=== PATIENT | female | born 1950 | race Asian ===

== ENCOUNTER 2019-06-05 19:07 | Inpatient (IN) | payer MEDICARE, OTHER ==
[~2019-06-05] VITALS: Ht 157.5 cm; Wt 71.8 kg
[2019-06-05] MEDS ORDERED: fentaNYL PF VIAL 100 MCG/2 ML VIAL IV ONE ×2 (20:15→22:15)
[2019-06-05 20:19] LABS: BASO # 0.1 x10^3/uL (0.0-0.2); BASO % 1 % (0-3); EOS # 0.2 x10^3/uL (0.0-0.7); EOS % 2 % (0-3); HEMATOCRIT 43.5 % (36.0-47.0); HEMOGLOBIN 14.5 g/dL (12.0-15.5); LYMPH # 1.7 x10^3/uL (1.0-4.8); LYMPH % 26 % (24-48); MEAN CORPUSCULAR HEMOGLOBIN 29 pg (25-35); MEAN CORPUSCULAR HGB CONC 33 g/dL (31-37); MEAN CORPUSCULAR VOLUME 88 fL (79-100); MONO # 0.5 x10^3/uL (0.0-1.1); MONO % 8 % (0-9); NEUT # 4.1 x10^3/uL (1.8-7.7); NEUT % 62 % (31-73); PLATELET COUNT 276 x10^3/uL (140-400); RED BLOOD COUNT 4.93 x10^6/uL (3.50-5.40); RED CELL DISTRIBUTION WIDTH 13.4 % (11.5-14.5); WHITE BLOOD COUNT 6.6 x10^3/uL (4.0-11.0)
[2019-06-05 20:20] LABS: BILIRUBIN,URINE NEGATIVE (NEG); CLARITY,URINE CLEAR; COLOR,URINE YELLOW; NITRITE,URINE NEGATIVE (NEG); PROTEIN,URINE NEGATIVE (NEG-TRACE); UROBILINOGEN,URINE 0.2 mg/dL (0.2 mg/dL)
[2019-06-05 20:26] LABS: BACTERIA,URINE FEW /HPF (0-FEW); RBC,URINE 0 /HPF (0-2); SQUAMOUS EPITHELIAL CELL,UR OCC /LPF
[2019-06-05 20:29] LABS: CREATININE 1.1 mg/dL (0.6-1.0); GFR 49.4; POTASSIUM 3.2 mmol/L (3.5-5.1)
[2019-06-05 20:35] LABS: ALBUMIN 4.2 g/dL (3.4-5.0); TOTAL BILIRUBIN 0.4 mg/dL (0.2-1.0); TOTAL PROTEIN 8.3 g/dL (6.4-8.2)
--- NOTE | 2019-06-05 20:46 | PHYS DOC ---
Past Medical History Past Medical History: Hypertension (GABI POST APRN) Alcohol Use: None Drug Use: None (GABI POST APRN) Adult General Chief Complaint Chief Complaint: MECHANICAL FALL HPI HPI Patient is a 69 year old female who presents with dizziness 6:30 PM tonight she was in the kitchen and didn't realize a dental assisting instructor was open and she tripped over it and fell landing on her right arm. Patient also has a 1 cm laceration to her right forehead of which she states that her eyeglasses when to her face. Patient denies hitting her head, LOC, blood thinners, nausea, vomiting, visual changes, dizziness. Patient states after she fell she also started having palpitations. Patient states she no longer has palpitations. Patient also denies chest pain, shortness of air. Patient rates her arm pain is 10 out of 10. (GABI POST APRN) Review of Systems Review of Systems Constitutional: Denies fever or chills [] Eyes: Denies change in visual acuity, redness, or eye pain [] HENT: Denies nasal congestion or sore throat [] Respiratory: Denies cough or shortness of breath [] Cardiovascular: No additional information not addressed in HPI [] GI: Denies abdominal pain, nausea, vomiting, bloody stools or diarrhea [] : Denies dysuria or hematuria [] Musculoskeletal: Denies back pain. Right shoulder, humerus, elbow, forearm joint pain [] Integument: laceration to right forehead. Denies rash or skin lesions [] Neurologic: Denies headache, focal weakness or sensory changes [] Endocrine: Denies polyuria or polydipsia [] All other systems were reviewed and found to be within normal limits, except as documented in this note. (GABI POST APRN) Current Medications Current Medications Current Medications Medications (Trade) Dose Ordered Sig/Amando Start Time Stop Time Status Last Admin Dose Admin Fentanyl Citrate (Fentanyl 2ml Vial) 50 mcg 1X ONCE 06/05/19 20:15 06/05/19 20:45 DC 06/05/19 21:00 50 MCG (HARSH BARRERA MD) Allergies Allergies Allergies Coded Allergies Type Severity Reaction Last Updated Verified No Known Drug Allergies 06/05/19 No (HARSH BARRERA MD) Physical Exam Physical Exam Constitutional: Well developed, well nourished, no acute distress, non-toxic appearance. [] HENT: Normocephalic, atraumatic, bilateral external ears normal, oropharynx moist, no oral exudates, nose normal. [] Eyes: PERRLA, EOMI, conjunctiva normal, no discharge. [] Neck: Normal range of motion, no tenderness, supple, no stridor. [] Cardiovascular:Heart rate regular rhythm, no murmur [] Lungs & Thorax: Bilateral breath sounds clear to auscultation [] Abdomen: Bowel sounds normal, soft, no tenderness, no masses, no pulsatile masses. [] Skin: 1 cm laceration to right forehead. Warm, dry, no erythema, no rash. [] Back: No tenderness, no CVA tenderness. [] Extremities: Right shoulder, humerus, elbow and forearm tenderness, no cyanosis, no clubbing, Right shoulder ROM no intact, no edema. [] Neurologic: Alert and oriented X 3, normal motor function, normal sensory function, no focal deficits noted. [] Psychologic: Affect normal, judgement normal, mood normal. [] (GABI POST APRN) Current Patient Data Vital Signs Vital Signs Date Time Temp Pulse Resp B/P (MAP) Pulse Ox O2 Delivery O2 Flow Rate FiO2 06/05/19 21:30 64 96 06/05/19 21:00 20 Room Air 06/05/19 19:27 99.7 226/103 (144) 99.7 (HARSH BARRERA MD) Lab Values Laboratory Tests Test 06/05/19 17:30 06/05/19 19:50 Urine Collection Type Void Urine Color Yellow Urine Clarity Clear Urine pH 7.0 Urine Specific [place] 1.010 Urine Protein Negative mg/dL (NEG-TRACE) Urine Glucose (UA) 500 mg/dL (NEG) Urine Ketones (Stick) Negative mg/dL (NEG) Urine Blood Negative (NEG) Urine Nitrite Negative (NEG) Urine Bilirubin Negative (NEG) Urine Urobilinogen Dipstick 0.2 mg/dL (0.2 mg/dL) Urine Leukocyte Esterase Trace (NEG) Urine RBC 0 /HPF (0-2) Urine WBC 1-4 /HPF (0-4) Urine Squamous Epithelial Cells Occ /LPF Urine Bacteria Few /HPF (0-FEW) Urine Mucus Mod /LPF White Blood Count 6.6 x10^3/uL (4.0-11.0) Red Blood Count 4.93 x10^6/uL (3.50-5.40) Hemoglobin 14.5 g/dL (12.0-15.5) Hematocrit 43.5 % (36.0-47.0) Mean Corpuscular Volume 88 fL (79-100) Mean Corpuscular Hemoglobin 29 pg (25-35) Mean Corpuscular Hemoglobin Concent 33 g/dL (31-37) Red Cell Distribution Width 13.4 % (11.5-14.5) Platelet Count 276 x10^3/uL (140-400) Neutrophils (%) (Auto) 62 % (31-73) Lymphocytes (%) (Auto) 26 % (24-48) Monocytes (%) (Auto) 8 % (0-9) Eosinophils (%) (Auto) 2 % (0-3) Basophils (%) (Auto) 1 % (0-3) Neutrophils # (Auto) 4.1 x10^3/uL (1.8-7.7) Lymphocytes # (Auto) 1.7 x10^3/uL (1.0-4.8) Monocytes # (Auto) 0.5 x10^3/uL (0.0-1.1) Eosinophils # (Auto) 0.2 x10^3/uL (0.0-0.7) Basophils # (Auto) 0.1 x10^3/uL (0.0-0.2) Sodium Level 139 mmol/L (136-145) Potassium Level 3.2 mmol/L (3.5-5.1) L Chloride Level 100 mmol/L (98-107) Carbon Dioxide Level 30 mmol/L (21-32) Anion Gap 9 (6-14) Blood Urea Nitrogen 6 mg/dL (7-20) L Creatinine 1.1 mg/dL (0.6-1.0) H Estimated GFR (Cockcroft-Gault) 49.4 BUN/Creatinine Ratio 5 (6-20) L Glucose Level 273 mg/dL (70-99) H Calcium Level 9.0 mg/dL (8.5-10.1) Total Bilirubin 0.4 mg/dL (0.2-1.0) Aspartate Amino Transferase (AST) 25 U/L (15-37) Alanine Aminotransferase (ALT) 55 U/L (14-59) Alkaline Phosphatase 96 U/L (46-116) Troponin I Quantitative < 0.017 ng/mL (0.000-0.055) Total Protein 8.3 g/dL (6.4-8.2) H Albumin 4.2 g/dL (3.4-5.0) Albumin/Globulin Ratio 1.0 (1.0-1.7) Laboratory Tests 06/05/19 19:50 Laboratory Tests 06/05/19 19:50 (HARSH BARRERA MD) EKG EKG Sinus Rhythm and no STEMI[] Interpretation Time: [address] Barrera (GABI POST APRN) Radiology/Procedures Radiology/Procedures [] (GABI POST APRN) Impressions: [facility] [address] [place], [place] [id number] IMAGING REPORT Signed PATIENT: NEREIDA BOLAÑOS DACCOUNT: [id number] : 1950 LOCATION: ER AGE: 69 SEX: F EXAM STATUS: PRE ER ORD. PHYSICIAN: GABI POST APRN REASON: FALL PROCEDURE: CT HEAD WO CONTRAST Exam: CT head INDICATION: Fall TECHNIQUE: Sequential axial images through the head were obtained without the administration of IV contrast. Comparisons: None FINDINGS: Embolization coils at the left middle cranial fossa limiting evaluation with extensive streak artifact. No focal parenchymal lesion or hemorrhage is identified. There is no midline shift or sulcal effacement. Patchy hypodensity within the periventricular white matter and basal ganglia which are age indeterminate. The ventricular system is within normal limits without compression hydrocephalus. The basal cisterns are well maintained. Mild soft tissue contusion overlying the right supraorbital ridge. The visualized portions of the paranasal sinuses and mastoid air cells are well-pneumatized. No acute fractures. IMPRESSION: 1. Embolization coils at the left intracranial internal carotid artery limit evaluation. 2. Mild soft tissue contusion overlying the right supraorbital ridge. No acute abnormality is identified. Exposure: One or more of the following in the visualized dose reduction techniques were utilized for this examination: 1. Automated exposure control 2. Adjustment of the MA and/or KV according to patient size Use of iterative of reconstructive technique Electronically signed by: Rick Trammell MD (06/05/2019 8:53 PM) [facility] DICTATED and SIGNED BY: RICK TRAMMELL MD DATE: 06/05/192052 (GABI POST APRN) Course & Med Decision Making Course & Med Decision Making Patient is a 69 year old female who presents with dizziness 6:30 PM tonight she was in the kitchen and didn't realize a dental assisting instructor was open and she tripped over it and fell landing on her right arm. Patient also has a 1 cm laceration to her right forehead of which she states that her eyeglasses when to her face. Patient denies hitting her head, LOC, blood thinners, nausea, vomiting, visual changes, dizziness. Patient states after she fell she also started having palpitations. Patient states she no longer has palpitations. Patient also denies chest pain, shortness of air. Patient rates her arm pain is 10 out of 10. EKG shows sinus rhythm and no STEMI. Patient denies any abdominal pain or dysuria or pain anywhere else on her body. Patient has no deformity to her right upper extremity but has tenderness to palpation of shoulder, humerus, elbow and upper or arm. There is no bruising or swelling. Cap refill is less than 3 seconds and radial pulses strong and present. Alert and oriented. Skin is pink warm and dry. Patient does not have intact range of motion to the right shoulder due to pain. She has full range of motion of her elbow, wrist and fingers. Patient has no tenderness to her head, focal tenderness to her cervical, thoracic, lumbar spine and has full range of motion of her back and neck. Speaks in full clear sentences. Ambulatory with steady gait. Denies any hip pain and has no hip pain or pelvis pain with palpation or pelvic rock. Abdomen is soft and nontender. Patient has a 1 cm laceration to her right forehead with no bruising or swelling to her head. Patient denies a headache. Patient only complains of the right arm pain that she rates a 10 out 10 states it's sharp and aching. Heart score 4. CT head shows 1. Embolization coils at the left intracranial internal carotid artery limit evaluation. 2. Mild soft tissue contusion overlying the right supraorbital ridge. No acute abnormality is identified. Xrays reviewed by Dr Barrera. Right shoulder is dislocated. Dr Barrera to do conscious sedation and put shoulder back into place. Blood pressure is currently down to 182/84. Spoken to Dr. mckeon for admission because the patient is currently still having palpitations. Patient still denies shortness of air or chest pain. Laceration Repair by me: Anesthesia: NONE Location: Right Forehead Tendon/Joint/Nerves: No injury Foreign body: None detected after copious irrigation and exploration Technique: Hector calvin Complexity: No subcutaneous sutures/mucosal repair/edge excision Post Closure Length: 1 cm Patient's bleeding was easily controlled in the department and there is no indication of anemia. No evidence of compartment syndrome, neurologic injury, vascular injury, open joint, tendon laceration, or foreign body. Patient is appropriate for outpatient follow up. 48 hour wound check. Scar minimization instructions given. (GABI POST APRN) Dragon Disclaimer Dragon Disclaimer This electronic medical record was generated, in whole or in part, using a voice recognition dictation system. (GABI POST APRN) The HEART Score for CP Pts HEART Score for Chest Pain: HEART Score for Chest Pain Response (Comments) Value History Slighlty/Non-Suspicious 0 ECG Normal 0 Age > 65 2 Risk Factors >3 Risk Factors or Hx CAD 2 Troponin < Normal Limit 0 Total 4 Risk Factors: Risk Factors: DM, Current or recent (<one month) smoker, HTN, HLP, family history of CAD, obesity. Risk Scores: Score 0 - 3: 2.5% MACE over next 6 weeks - Discharge Home Score 4 - 6: 20.3% MACE over next 6 weeks - Admit for Clinical Observation Score 7 - 10: 72.7% MACE over next 6 weeks - Early Invasive Strategies (GABI POST APRN) Departure Departure Impression: Primary Impression: Palpitations Additional Impression: Shoulder dislocation Disposition: ADMITTED INPATIENT Admitting Physician: ANDRES (GABI POST APRN) Condition: STABLE Joint Reduction Procedure Joint Indication: Right shoulder dislocation Consent: Consent was obtained. Procedure: The pre-reduction exam showed distal perfusion and neurologic function to be normal. The patient was placed in the appropriate position. Anesthesia/pain control with 100 mg propofol and fentanyl 50 �g. Reduction of the right shoulder was performed by direct manipulation. Post reduction films were obtained and revealed fracture of humeral head with partial reduction of subluxation.. A post-reduction exam revealed distal perfusion and neurologic function to be normal. The affected area was immobilized with shoulder immobilizer. The patient tolerated the procedure well. Complications: none. (HARSH BARRERA MD) MODERATE SEDATION ASSESSMENT RISKS/ALTERNATIVES Risks/Alternatives Risks and alternatives of this type of sedation and procedure discussed with: RISK/ALTERNATIVES: Patient (HARSH BARRERA MD) H & P ON CHART H & P H & P on chart and reviewed for co-morbid conditions and appropriate labs. H&P ON CHART: Yes (HARSH BARRERA MD) STATUS PREG STATUS ASSESSED: N/A (HARSH BARRERA MD) MEDS/ALLERGIES REVIEWED Meds/Allergies Reviewed Medications and Allergies including time and route of recently administered narcotics and sedatives. MEDS/ALLERGIES REVIEWED: Yes (HARSH BARRERA MD) ASA RATING ASA RATING: II (HARSH BARRERA MD) AIRWAY ASSESSMENT Airway Assessment Airway patency, oral function limitations, presence of caps, crowns, dentures, partials, and ability to extend neck assessed. AIRWAY ASSESSMENT: Yes (HARSH BARRERA MD) MALLAMPATI SCORE MALLAMPATI SCORE: I, II (HARSH BARRERA MD) PRE-SEDATION ASSESSMENT PRE-SEDATION ASSESSMENT: Yes (HARSH BARRERA MD) Problem Qualifiers Additional Impression: Shoulder dislocation Encounter type: initial encounter Laterality: right Qualified Codes: S43.004A - Unspecified dislocation of right shoulder joint, initial encounter GABI POST APRN Jun 05, 2019 20:46 HARSH BARRERA MD Jun 05, 2019 22:57
--- NOTE | 2019-06-05 20:56 | RAD ---
Exam: CT head INDICATION: Fall TECHNIQUE: Sequential axial images through the head were obtained without the administration of IV contrast. Comparisons: None FINDINGS: Embolization coils at the left middle cranial fossa limiting evaluation with extensive streak artifact. No focal parenchymal lesion or hemorrhage is identified. There is no midline shift or sulcal effacement. Patchy hypodensity within the periventricular white matter and basal ganglia which are age indeterminate. The ventricular system is within normal limits without compression hydrocephalus. The basal cisterns are well maintained. Mild soft tissue contusion overlying the right supraorbital ridge. The visualized portions of the paranasal sinuses and mastoid air cells are well-pneumatized. No acute fractures. IMPRESSION: 1. Embolization coils at the left intracranial internal carotid artery limit evaluation. 2. Mild soft tissue contusion overlying the right supraorbital ridge. No acute abnormality is identified. Exposure: One or more of the following in the visualized dose reduction techniques were utilized for this examination: 1. Automated exposure control 2. Adjustment of the MA and/or KV according to patient size Use of iterative of reconstructive technique Electronically signed by: Rick Humphrey MD (06/05/2019 8:53 PM) [facility]
[2019-06-05] MEDS ORDERED: fentaNYL PF VIAL 100 MCG/2 ML VIAL IV PRN (22:00)
[2019-06-05] MEDS ORDERED: ACETAMINOPHEN 325 MG TABLET. PO PRN (22:00)
[2019-06-05] MEDS ORDERED: ONDANSETRON PF 4 MG/2 ML VIAL. IV PRN (22:00)
[2019-06-05] MEDS ORDERED: PROPOFOL 10 MG/ML (20ML) VIAL. IV ONE (22:15)
[2019-06-05] MEDS ORDERED: IV NORMAL SALINE 1000ML BAG 1,000 ML IV ONE (22:15)
[2019-06-05 23:18] VITALS: BP 208/91
--- NOTE | 2019-06-05 23:40 | RAD ---
Exam: Right elbow 3 views. Right humerus 2 views. Right shoulder 2 views INDICATION: Fall TECHNIQUE: Frontal, lateral and oblique views of the right elbow. Frontal and lateral views of the right humerus. Frontal and transcatheter Y views of the right shoulder. Comparisons: None FINDINGS: Elbow: Bone mineralization and development are normal. No acute or healed fractures. Soft tissues are unremarkable. Joint spaces are well-maintained. Humerus: Comminuted impacted fracture of the right proximal humerus at the surgical neck involving the greater tuberosity with mild displacement. No other fractures are seen. Soft tissues are unremarkable. Shoulder: Widening of the subacromial space, likely secondary to hematoma. No other fractures are seen. Visualized soft tissues are otherwise unremarkable. IMPRESSION: 1. Comminuted impacted fracture of the right proximal humerus at the surgical neck involving the greater tuberosity with mild displacement. 2. Increase in the subacromial space, likely secondary to hematoma. 3. No acute osseous abnormality of the right elbow. Electronically signed by: Rick Humphrey MD (06/05/2019 11:37 PM) [facility]
[2019-06-06] VITALS (8 sets, daily range): BP systolic 129–179; BP diastolic 45–84
--- NOTE | 2019-06-06 00:21 | RAD ---
Two-view right shoulder dated 06/05/2019. Comparison made to study dated same day. Clinical indication: Post reduction film. FINDINGS: 2 views of right shoulder show persistent internal rotation. There is a comminuted fracture of the greater tuberosity, unchanged. Widening of the subacromial space is similar to slightly improved. There is mild hypertrophic change of the AC joint. No new fracture. IMPRESSION: 1. No significant interval change in glenohumeral alignment. Slight inferior subluxation of the humeral head relative to glenoid. 2. Fracture of the greater tuberosity, unchanged. Electronically signed by: Adriano Mcdonald MD (06/06/2019 12:18 AM) [facility]
--- NOTE | 2019-06-06 00:45 | NUR ---
Admit from ED via [facility] with Dx Fall at home. Patient reports palpitations after fall at home. SR noted on the monitor. Dislocated right shoulder with fall. Patient A/O x 4 on arrival to unit. VSS. Able to stand and walk from [facility] [place] to bed in room with standby assist. Right arm has immobilizer in place. Reviewed home med list. Patient able to tell me meds she takes but not doses. Daughter will bring in list. Patient reports she moved to [place] from [place] one month ago so she does not have a pharmacy established yet. Daughter, Aldo, , is supervisor contact and service clerks. Denies pain at this time "as long as I'm not moving". Orientated to room and call light. Resting in bed with call light at hand.
[2019-06-06] MEDS ORDERED: metformin (01:27)
[2019-06-06] MEDS ORDERED: atorvastatin (01:28)
[2019-06-06] MEDS ORDERED: [UNRECOGNIZED DRUG - OTHER] (01:28)
--- NOTE | 2019-06-06 05:05 | EKG ---
[facility] [address] [place] [address] Test Date: 2019-06-05 Test Time: 19:16:31 Pat Name: NEREIDA BOLAÑOS Department: Patient ID: [facility]-[id number] Room: 205 1 Gender: F Flavor Maker: [facility] ER : 1950 Requested By: GABI POST Order Number: [id number] Reading MD: Landen March MD Measurements Intervals [place] Rate: 66 P: 53 DC: 182 QRS: 20 QRSD: 82 T: 83 QT: 380 QTc: 404 Interpretive Statements SINUS RHYTHM NON-SPECIFIC ST/T CHANGES Electronically Signed On 06-06-2019 12:01:27 CDT by Landen March MD
[2019-06-06] MEDS ORDERED: HYDROcodone/APAP 5/325MG 1 TAB TABLET PO PRN (10:15)
[2019-06-06] MEDS ORDERED: ONDANSETRON PF 4 MG/2 ML VIAL. IV PRN (10:15)
[2019-06-06] MEDS ORDERED: MORPHINE SULFATE 2 MG/ML VIAL. IV PRN (10:15)
[2019-06-06] MEDS ORDERED: hydrALAZINE 20 MG/ML VIAL. IVP PRN (10:15)
[2019-06-06] MEDS ORDERED: POTASSIUM CHLORIDE 20 MEQ TABLET.ER. PO ONE (10:15)
[2019-06-06] MEDS ORDERED: IV NORMAL SALINE 1000ML BAG 1,000 ML IV ONE (10:15)
--- NOTE | 2019-06-06 10:31 | PDOC2 ---
MICHAEL PABON SOCIAL WORK PROGRAM COORDINATOR 06/06/19 1031: CARDIAC CONSULT DATE OF CONSULT Date of Consult DATE: 06/06/19 TIME: 10:11 REASON FOR CONSULT Reason for Consult: Palpitations REFERRING PHYSICIAN Referring Physician: Kwesi SOURCE Source: Chart review, Patient HISTORY OF PRESENT ILLNESS HISTORY OF PRESENT ILLNESS This is a pleasant 69 yo female admitted for complains of fall and palpitations. Reports that she fell yesterday evening. 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 Afterwards she felt palpitations for about 2 hours but no other cardiac symptoms. She did have TIA 02/2019 when she was in the [facility]. Prior to this event she denies any resting palpitations and no hx of arrhythmias nor cardiac disease. No passing out or frequent dizziness. No recent infection and is not dehydrated. PAST MEDICAL HISTORY Cardiovascular: HTN, Hyperlipidemia Pulmonary: No pertinent hx CENTRAL NERVOUS SYSTEM: TIA GI: No pertinent hx Heme/Onc: No pertinent hx Hepatobiliary: No pertinent hx Psych: Depression (takes prozac) Musculoskeletal: Osteoarthritis Infectious disease: No pertinent hx ENT: No pertinent hx Renal/: No pertinent hx Endocrine: Diabetes (2) Dermatology: No pertinent hx PAST SURGICAL HISTORY Past Surgical History: No pertinent history FAMILY HISTORY Family History noncontributory to CV SOCIAL HISTORY Smoke: No ALCOHOL: none Drugs: None Lives: with Family CURRENT MEDICATIONS CURRENT MEDICATIONS Current Medications Medications (Trade) Dose Ordered Sig/Amando Route PRN Reason Start Time Stop Time Status Last Admin Dose Admin Fentanyl Citrate (Fentanyl 2ml Vial) 50 mcg 1X ONCE IV 06/05/19 20:15 06/05/19 20:45 DC 06/05/19 21:00 Sodium Chloride 1,000 ml @ 100 mls/hr 1X ONCE IV 06/05/19 22:15 06/06/19 08:14 DC 06/05/19 23:14 ALLERGIES ALLERGIES: Coded Allergies: No Known Drug Allergies (Unverified , 06/05/19) ROS Review of System 14 point ROS evaluated with pertinent positives noted per HPI PHYSICAL EXAM General: Alert, Oriented X3, Cooperative, No acute distress HEENT: Atraumatic, Mucous membr. moist/pink Lungs: Clear to auscultation, Normal air movement Heart: Regular rate (SR), Normal S1, Normal S2 Abdomen: Soft, No tenderness Extremities: No cyanosis, No edema Skin: No breakdown, No significant lesion Neuro: Normal speech, Sensation intact Psych/Mental Status: Mental status NL, Mood NL MUSCULOSKELETAL: Osteoarthritic changes both hands, Other (right shoulder fracture) VITALS/I&O VITALS/I&O: Vital Signs Date Time Temp Pulse Resp B/P (MAP) Pulse Ox O2 Delivery O2 Flow Rate FiO2 06/06/19 07:00 98.2 65 16 169/77 (107) 96 Room Air 98.2 06/05/19 23:18 2.0 2.0 2.0 2.0 2.0 2.0 I & O 0 06/05/19 06/05/19 06/06/19 15:00 23:00 07:00 Intake Total 0 ml Output Total 400 ml Balance -400 ml LABS Lab: Laboratory Tests Test 06/05/19 17:30 06/05/19 19:50 06/06/19 01:05 06/06/19 07:40 Urine Collection Type Void Urine Color Yellow Urine Clarity Clear Urine pH 7.0 Urine Specific [place] 1.010 Urine Protein Negative mg/dL (NEG-TRACE) Urine Glucose (UA) 500 mg/dL (NEG) Urine Ketones (Stick) Negative mg/dL (NEG) Urine Blood Negative (NEG) Urine Nitrite Negative (NEG) Urine Bilirubin Negative (NEG) Urine Urobilinogen Dipstick 0.2 mg/dL (0.2 mg/dL) Urine Leukocyte Esterase Trace (NEG) Urine RBC 0 /HPF (0-2) Urine WBC 1-4 /HPF (0-4) Urine Squamous Epithelial Cells Occ /LPF Urine Bacteria Few /HPF (0-FEW) Urine Mucus Mod /LPF White Blood Count 6.6 x10^3/uL (4.0-11.0) Red Blood Count 4.93 x10^6/uL (3.50-5.40) Hemoglobin 14.5 g/dL (12.0-15.5) Hematocrit 43.5 % (36.0-47.0) Mean Corpuscular Volume 88 fL (79-100) Mean Corpuscular Hemoglobin 29 pg (25-35) Mean Corpuscular Hemoglobin Concent 33 g/dL (31-37) Red Cell Distribution Width 13.4 % (11.5-14.5) Platelet Count 276 x10^3/uL (140-400) Neutrophils (%) (Auto) 62 % (31-73) Lymphocytes (%) (Auto) 26 % (24-48) Monocytes (%) (Auto) 8 % (0-9) Eosinophils (%) (Auto) 2 % (0-3) Basophils (%) (Auto) 1 % (0-3) Neutrophils # (Auto) 4.1 x10^3/uL (1.8-7.7) Lymphocytes # (Auto) 1.7 x10^3/uL (1.0-4.8) Monocytes # (Auto) 0.5 x10^3/uL (0.0-1.1) Eosinophils # (Auto) 0.2 x10^3/uL (0.0-0.7) Basophils # (Auto) 0.1 x10^3/uL (0.0-0.2) Sodium Level 139 mmol/L (136-145) Potassium Level 3.2 mmol/L (3.5-5.1) L Chloride Level 100 mmol/L (98-107) Carbon Dioxide Level 30 mmol/L (21-32) Anion Gap 9 (6-14) Blood Urea Nitrogen 6 mg/dL (7-20) L Creatinine 1.1 mg/dL (0.6-1.0) H Estimated GFR (Cockcroft-Gault) 49.4 BUN/Creatinine Ratio 5 (6-20) L Glucose Level 273 mg/dL (70-99) H Calcium Level 9.0 mg/dL (8.5-10.1) Total Bilirubin 0.4 mg/dL (0.2-1.0) Aspartate Amino Transferase (AST) 25 U/L (15-37) Alanine Aminotransferase (ALT) 55 U/L (14-59) Alkaline Phosphatase 96 U/L (46-116) Troponin I Quantitative < 0.017 ng/mL (0.000-0.055) < 0.017 ng/mL (0.000-0.055) Total Protein 8.3 g/dL (6.4-8.2) H Albumin 4.2 g/dL (3.4-5.0) Albumin/Globulin Ratio 1.0 (1.0-1.7) Glucose (Fingerstick) 124 mg/dL (70-99) H Laboratory Tests 06/05/19 19:50 Laboratory Tests 06/05/19 19:50 ASSESSMENT/PLAN ASSESSMENT/PLAN 1. Traumatic mechanical fall with right shoulder fracture 2. Palpitations: likely from sympathetic surge post injury 3. Hx of TIA 4. HTN urgency 5. HLP 6. DM2 Recommendations 1. TTE, TSH 2. Would consider for outpt event monitor given her hx of TIA 3. Continue with secondary prevention and BP regimen. ASA 4. consult ortho XAVI NEUMANN MD 06/06/19 1609: CARDIAC CONSULT ASSESSMENT/PLAN ASSESSMENT/PLAN Patient seen and examined. Agree with above nurse practitioner note. 69-year-old woman with a mechanical fall. Blood pressure elevated likely due to her pain. No obvious concerning arrhythmias thus far on telemetry and EKG. Supportive care. Okay to discharge from a cardiac standpoint. Follow-up in the office in 3-4 months if she's having continued palpitations otherwise as needed. Thank you for this consultation. MICHAEL PABON APRN Jun 06, 2019 10:31 XAVI NEUMANN MD Jun 06, 2019 16:09
[2019-06-06] MEDS ORDERED: METF500S5 PO (10:43)
[2019-06-06 10:44] LABS: CALCIUM 8.5 mg/dL (8.5-10.1); CREATININE 0.7 mg/dL (0.6-1.0); GFR 83.2; MAGNESIUM 2.3 mg/dL (1.8-2.4); POTASSIUM 3.8 mmol/L (3.5-5.1)
--- NOTE | 2019-06-06 10:50 | NUR ---
SS following for discharge planning. SS reviewed pt chart. Pt is from home and is currently on room air. No discharge needs noted at this time. SS will continue to follow for discharge planning.
--- NOTE | 2019-06-06 11:18 | PDOC1 ---
History and Physical Date of Admission Date of Admission DATE: 06/06/19 TIME: 11:14 Identification/Chief Complaint Chief Complaint palpitations Source Source: Caregiver, Chart review History of Present Illness History of Present Illness She is out having echo, 69 F, palpitations and fell and hurt her rt UE and now has a displaced fx rt shoulder/rt prox humerus LAbs ok VS ok HX of TIA in [facility] few yrs back Past Medical History Cardiovascular: HTN, Hyperlipidemia Pulmonary: No pertinent hx CENTRAL NERVOUS SYSTEM: TIA GI: No pertinent hx Heme/Onc: No pertinent hx Hepatobiliary: No pertinent hx Psych: Depression (takes prozac) Musculoskeletal: Osteoarthritis Infectious disease: No pertinent hx ENT: No pertinent hx Renal/: No pertinent hx Endocrine: Diabetes (2) Dermatology: No pertinent hx Past Surgical History Past Surgical History: No pertinent history Family History Family History: Hypertension Social History Smoke: No ALCOHOL: none Drugs: None Current Problem List Problem List Problems Medical Problems: (1) Palpitations Status: Acute (2) Shoulder dislocation Status: Acute Current Medications Current Medications Current Medications Fentanyl Citrate (Fentanyl 2ml Vial) 50 mcg 1X ONCE IV Last administered on 06/05/19at 21:00; Start 06/05/19 at 20:15; Stop 06/05/19 at 20:45; Status DC Ondansetron HCl (Zofran) 4 mg PRN Q8HRS PRN IV NAUSEA/VOMITING; Start 06/05/19 at 22:00; Stop 06/06/19 at 10:14; Status DC Fentanyl Citrate (Fentanyl 2ml Vial) 50 mcg PRN Q1HR PRN IV PAIN; Start 06/05/19 at 22:00; Stop 06/06/19 at 10:44; Status DC Acetaminophen (Tylenol) 650 mg PRN Q4HRS PRN PO FEVER; Start 06/05/19 at 22:00; Stop 06/06/19 at 21:59 Propofol (Diprivan) 200 mg 1X ONCE IV ; Start 06/05/19 at 22:15; Stop 06/05/19 at 22:16; Status DC Fentanyl Citrate (Fentanyl 2ml Vial) 50 mcg 1X ONCE IV ; Start 06/05/19 at 22:15; Stop 06/05/19 at 22:16; Status DC Sodium Chloride 1,000 ml @ 100 mls/hr 1X ONCE IV Last administered on 06/05/19at 23:14; Start 06/05/19 at 22:15; Stop 06/06/19 at 08:14; Status DC Ondansetron HCl (Zofran) 4 mg PRN Q6HRS PRN IV NAUSEA/VOMITING; Start 06/06/19 at 10:15 Hydralazine HCl (Apresoline Inj) 10 mg PRN Q4HRS PRN IVP ELEVATED BP, SEE COMMENTS; Start 06/06/19 at 10:15 Acetaminophen/ Hydrocodone Bitart (Lortab 5/325) 1 tab PRN Q4HRS PRN PO PAIN; Start 06/06/19 at 10:15 Morphine Sulfate (Morphine Sulfate) 2 mg PRN Q2HR PRN IV PAIN; Start 06/06/19 a t 10:15 Sodium Chloride 1,000 ml @ 100 mls/hr 1X ONCE IV ; Start 06/06/19 at 10:15; Stop 06/06/19 at 20:14 Potassium Chloride (Klor-Con) 40 meq 1X ONCE PO ; Start 06/06/19 at 10:15; Stop 06/06/19 at 10:16; Status DC Aspirin (Ecotrin) 81 mg DAILYWBKFT PO ; Start 06/06/19 at 11:00 Losartan Potassium (Cozaar) 50 mg DAILY PO ; Start 06/06/19 at 11:00 Atorvastatin Calcium (Lipitor) 20 mg QHS PO ; Start 06/06/19 at 21:00 Fluoxetine HCl (PROzac) 20 mg DAILY PO ; Start 06/07/19 at 09:00 Active Scripts Active Reported Metformin HCl 500 Mg/5 Ml Solution 500 Mg PO BID [lorsatin] [atorvastatin] [metformin] Allergies Allergies: Coded Allergies: No Known Drug Allergies (Unverified , 06/05/19) ROS Review of System out having echo Physical Exam General: Alert, Oriented X3, Cooperative, No acute distress HEENT: PERRLA Lungs: Clear to auscultation, Normal air movement Heart: S1S2, RRR, no thrills, no rubs Cardiovascular: S1, S2 Breasts: Normal, Rt breast nml w/o mass, Lt breast nml w/o mass, Nipples normal Abdomen: Normal bowel sounds, Soft, No tenderness, No hepatosplenomegaly, No masses Rectal Exam: not examined Extremities: No clubbing, No cyanosis, No edema, Normal pulses, No tenderness/swelling Skin: No rashes, No breakdown, No significant lesion Neuro: Normal gait, Normal speech, Strength at 5/5 X4 ext, Normal tone, Sensation intact, Cranial nerves 3-12 NL, Reflexes 2+ Psych/Mental Status: Mental status NL, Mood NL Vitals Vitals Vital Signs Date Time Temp Pulse Resp B/P (MAP) Pulse Ox O2 Delivery O2 Flow Rate FiO2 06/06/19 11:00 98.4 73 16 154/65 (94) 93 Room Air 98.4 06/05/19 23:18 2.0 2.0 2.0 2.0 2.0 2.0 Labs Labs Laboratory Tests Test 06/05/19 17:30 06/05/19 19:50 06/06/19 01:05 06/06/19 07:40 Urine Collection Type Void Urine Color Yellow Urine Clarity Clear Urine pH 7.0 Urine Specific [place] 1.010 Urine Protein Negative mg/dL (NEG-TRACE) Urine Glucose (UA) 500 mg/dL (NEG) Urine Ketones (Stick) Negative mg/dL (NEG) Urine Blood Negative (NEG) Urine Nitrite Negative (NEG) Urine Bilirubin Negative (NEG) Urine Urobilinogen Dipstick 0.2 mg/dL (0.2 mg/dL) Urine Leukocyte Esterase Trace (NEG) Urine RBC 0 /HPF (0-2) Urine WBC 1-4 /HPF (0-4) Urine Squamous Epithelial Cells Occ /LPF Urine Bacteria Few /HPF (0-FEW) Urine Mucus Mod /LPF White Blood Count 6.6 x10^3/uL (4.0-11.0) Red Blood Count 4.93 x10^6/uL (3.50-5.40) Hemoglobin 14.5 g/dL (12.0-15.5) Hematocrit 43.5 % (36.0-47.0) Mean Corpuscular Volume 88 fL (79-100) Mean Corpuscular Hemoglobin 29 pg (25-35) Mean Corpuscular Hemoglobin Concent 33 g/dL (31-37) Red Cell Distribution Width 13.4 % (11.5-14.5) Platelet Count 276 x10^3/uL (140-400) Neutrophils (%) (Auto) 62 % (31-73) Lymphocytes (%) (Auto) 26 % (24-48) Monocytes (%) (Auto) 8 % (0-9) Eosinophils (%) (Auto) 2 % (0-3) Basophils (%) (Auto) 1 % (0-3) Neutrophils # (Auto) 4.1 x10^3/uL (1.8-7.7) Lymphocytes # (Auto) 1.7 x10^3/uL (1.0-4.8) Monocytes # (Auto) 0.5 x10^3/uL (0.0-1.1) Eosinophils # (Auto) 0.2 x10^3/uL (0.0-0.7) Basophils # (Auto) 0.1 x10^3/uL (0.0-0.2) Sodium Level 139 mmol/L (136-145) 140 mmol/L (136-145) Potassium Level 3.2 mmol/L (3.5-5.1) 3.8 mmol/L (3.5-5.1) Chloride Level 100 mmol/L (98-107) 105 mmol/L (98-107) Carbon Dioxide Level 30 mmol/L (21-32) 23 mmol/L (21-32) Anion Gap 9 (6-14) 12 (6-14) Blood Urea Nitrogen 6 mg/dL (7-20) 5 mg/dL (7-20) Creatinine 1.1 mg/dL (0.6-1.0) 0.7 mg/dL (0.6-1.0) Estimated GFR (Cockcroft-Gault) 49.4 83.2 BUN/Creatinine Ratio 5 (6-20) Glucose Level 273 mg/dL (70-99) 190 mg/dL (70-99) Calcium Level 9.0 mg/dL (8.5-10.1) 8.5 mg/dL (8.5-10.1) Total Bilirubin 0.4 mg/dL (0.2-1.0) Aspartate Amino Transf (AST/SGOT) 25 U/L (15-37) Alanine Aminotransferase (ALT/SGPT) 55 U/L (14-59) Alkaline Phosphatase 96 U/L (46-116) Troponin I Quantitative < 0.017 ng/mL (0.000-0.055) < 0.017 ng/mL (0.000-0.055) Total Protein 8.3 g/dL (6.4-8.2) Albumin 4.2 g/dL (3.4-5.0) Albumin/Globulin Ratio 1.0 (1.0-1.7) Magnesium Level 2.3 mg/dL (1.8-2.4) Thyroid Stimulating Hormone (TSH) 0.481 uIU/mL (0.358-3.74) Glucose (Fingerstick) 124 mg/dL (70-99) Laboratory Tests Test 06/05/19 17:30 06/05/19 19:50 06/06/19 01:05 06/06/19 07:40 Urine Collection Type Void Urine Color Yellow Urine Clarity Clear Urine pH 7.0 Urine Specific [place] 1.010 Urine Protein Negative mg/dL (NEG-TRACE) Urine Glucose (UA) 500 mg/dL (NEG) Urine Ketones (Stick) Negative mg/dL (NEG) Urine Blood Negative (NEG) Urine Nitrite Negative (NEG) Urine Bilirubin Negative (NEG) Urine Urobilinogen Dipstick 0.2 mg/dL (0.2 mg/dL) Urine Leukocyte Esterase Trace (NEG) Urine RBC 0 /HPF (0-2) Urine WBC 1-4 /HPF (0-4) Urine Squamous Epithelial Cells Occ /LPF Urine Bacteria Few /HPF (0-FEW) Urine Mucus Mod /LPF White Blood Count 6.6 x10^3/uL (4.0-11.0) Red Blood Count 4.93 x10^6/uL (3.50-5.40) Hemoglobin 14.5 g/dL (12.0-15.5) Hematocrit 43.5 % (36.0-47.0) Mean Corpuscular Volume 88 fL (79-100) Mean Corpuscular Hemoglobin 29 pg (25-35) Mean Corpuscular Hemoglobin Concent 33 g/dL (31-37) Red Cell Distribution Width 13.4 % (11.5-14.5) Platelet Count 276 x10^3/uL (140-400) Neutrophils (%) (Auto) 62 % (31-73) Lymphocytes (%) (Auto) 26 % (24-48) Monocytes (%) (Auto) 8 % (0-9) Eosinophils (%) (Auto) 2 % (0-3) Basophils (%) (Auto) 1 % (0-3) Neutrophils # (Auto) 4.1 x10^3/uL (1.8-7.7) Lymphocytes # (Auto) 1.7 x10^3/uL (1.0-4.8) Monocytes # (Auto) 0.5 x10^3/uL (0.0-1.1) Eosinophils # (Auto) 0.2 x10^3/uL (0.0-0.7) Basophils # (Auto) 0.1 x10^3/uL (0.0-0.2) Sodium Level 139 mmol/L (136-145) 140 mmol/L (136-145) Potassium Level 3.2 mmol/L (3.5-5.1) 3.8 mmol/L (3.5-5.1) Chloride Level 100 mmol/L (98-107) 105 mmol/L (98-107) Carbon Dioxide Level 30 mmol/L (21-32) 23 mmol/L (21-32) Anion Gap 9 (6-14) 12 (6-14) Blood Urea Nitrogen 6 mg/dL (7-20) 5 mg/dL (7-20) Creatinine 1.1 mg/dL (0.6-1.0) 0.7 mg/dL (0.6-1.0) Estimated GFR (Cockcroft-Gault) 49.4 83.2 BUN/Creatinine Ratio 5 (6-20) Glucose Level 273 mg/dL (70-99) 190 mg/dL (70-99) Calcium Level 9.0 mg/dL (8.5-10.1) 8.5 mg/dL (8.5-10.1) Total Bilirubin 0.4 mg/dL (0.2-1.0) Aspartate Amino Transf (AST/SGOT) 25 U/L (15-37) Alanine Aminotransferase (ALT/SGPT) 55 U/L (14-59) Alkaline Phosphatase 96 U/L (46-116) Troponin I Quantitative < 0.017 ng/mL (0.000-0.055) < 0.017 ng/mL (0.000-0.055) Total Protein 8.3 g/dL (6.4-8.2) Albumin 4.2 g/dL (3.4-5.0) Albumin/Globulin Ratio 1.0 (1.0-1.7) Magnesium Level 2.3 mg/dL (1.8-2.4) Thyroid Stimulating Hormone (TSH) 0.481 uIU/mL (0.358-3.74) Glucose (Fingerstick) 124 mg/dL (70-99) VTE Prophylaxis Ordered VTE Prophylaxis Devices: Yes VTE Pharmacological Prophylaxi: Yes Assessment/Plan Assessment/Plan palpitations FAll RT shoulder/humerus fx Hx TIA OA, DM - chronic stable PLAn: COnsult ortho too NPO till ortho sees, hold metformin for now Check vit D Ff up echo results cards consulted I have reconciled home meds dw JERONIMO MCDANIEL MD Jun 06, 2019 11:18
[2019-06-06] MEDS: LOSARTAN POTASSIUM 50 MG TABLET. PO SCH (12:43)
[2019-06-06] MEDS: ASPIRIN ENTERIC COATED 81 MG TABLET.DR. PO SCH (12:43)
[2019-06-06] MEDS ORDERED: ATORVASTATIN CALCIUM 20 MG TABLET PO SCH (21:00)
[2019-06-07 03:00] VITALS: BP 143/68
--- NOTE | 2019-06-07 04:26 | CONS ---
DATE OF CONSULTATION: 06/06/2019 CHIEF COMPLAINT: Right shoulder pain. 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 She was found to have a right shoulder dislocation in the Emergency Department, which was relocated by Emergency Department personnel. She is now in an immobilizer and also was admitted with heart palpitations and was admitted initially on telemetry and is now upstairs on medical surgical care, although her pain was severe on first presentation to the operating room. She said she is much more comfortable with pain medications and the immobilizer currently. PAST MEDICAL HISTORY: Significant for hypertension. Past medical history is also significant for previous TIA several years ago with no residual symptoms and some depression as well as diabetes type 2, which is diet controlled. PAST SURGICAL HISTORY: No past surgical history. SOCIAL HISTORY: Denies tobacco, alcohol or drug use. MEDICATIONS: List is reviewed. ALLERGIES: She has no known drug allergies. FAMILY HISTORY: Only of hypertension. REVIEW OF SYSTEMS: Significant for the right shoulder pain and history of instability. Her palpitations have since resolved. She denies any visual changes, neck or back pain. No residual headache, focal weakness, numbness or tingling. PHYSICAL EXAMINATION: GENERAL: She is alert and oriented, pleasant, cooperative, has a small laceration on her forehead from her eyeglasses. Tenderness on palpation over the proximal humerus and some slight swelling in the area on the right side. No tenderness over the acromioclavicular joint. Normal parascapular motion is noted. She has some mild pain over gentle internal and external rotation, minimal abduction. Normal alignment, stability of bilateral elbows and wrists. Normal examination of the contralateral left shoulder. Overall intact motor function, distal pulses, sensation, reflexes, skin in both upper extremities throughout. Gait is normal. There is no sign of lower extremity injury. IMAGING: X-rays show a dislocation of her right shoulder on previous films with a greater tuberosity fracture that has minimal displacement post-reduction. Glenohumeral joint is well maintained. IMPRESSION: Status post reduction right shoulder dislocation with nondisplaced greater tuberosity fracture. TREATMENT PLAN: I went over with her that we are going to continue treating her nonoperatively in a sling for the shoulder. She can get out of the sling to shower, pendulum or swing the arm at her side only and do some fine motor use such as feeding herself, etc. with her arm close to her body. I would overall like to see her back in approximately 2-3 weeks, at which time we can reassess with x-rays, examination and possible physical therapy at that time based on her progress. ZACK ALEGRIA MD DR: MYA/nts JOB#: [id number] / [id number]
[2019-06-07 07:00] VITALS: BP 154/68
[2019-06-07 08:08] LABS: CREATININE 0.7 mg/dL (0.6-1.0); GFR 83.2
[2019-06-07] MEDS: ASPIRIN ENTERIC COATED 81 MG TABLET.DR. PO SCH (08:28)
[2019-06-07] MEDS: LOSARTAN POTASSIUM 50 MG TABLET. PO SCH (08:29)
[2019-06-07] MEDS ORDERED: FLUoxetine HCL 20 MG CAPSULE PO SCH (09:00)
[2019-06-07 11:00] VITALS: BP 146/65
[2019-06-07] MEDS ORDERED: DOCU-109 PO (12:45)
[2019-06-07] MEDS ORDERED: HYDR-2761 PO (12:45)
[2019-06-07] MEDS ORDERED: CHOL2000 PO (13:20)
--- NOTE | 2019-06-07 13:23 | PDOC3 ---
Discharge Summary Visit Information Date of Admission: Jun 05, 2019 Date of Discharge: Jun 07, 2019 Final Diagnosis acute shoulder pain, right shoulder dislocation with nondisplaced greater tuberosity fracture. Problems Medical Problems: (1) DM2 (diabetes mellitus, type 2) Status: Chronic (2) Fracture of right humerus Status: Acute (3) OA (osteoarthritis) Status: Chronic (4) Palpitations Status: Acute (5) Shoulder dislocation Status: Acute Brief Hospital Course Allergies Allergies Coded Allergies Type Severity Reaction Last Updated Verified No Known Drug Allergies 06/05/19 No Vital Signs Vital Signs Date Time Temp Pulse Resp B/P (MAP) Pulse Ox O2 Delivery O2 Flow Rate FiO2 06/07/19 11:00 98.2 68 14 146/65 (92) 97 Room Air 98.2 06/06/19 22:56 2.0 Lab Results Laboratory Tests Test 06/05/19 17:30 06/05/19 19:50 06/06/19 01:05 06/06/19 07:40 Urine Collection Type Void Urine Color Yellow Urine Clarity Clear Urine pH 7.0 Urine Specific [place] 1.010 Urine Protein Negative mg/dL (NEG-TRACE) Urine Glucose (UA) 500 mg/dL (NEG) Urine Ketones (Stick) Negative mg/dL (NEG) Urine Blood Negative (NEG) Urine Nitrite Negative (NEG) Urine Bilirubin Negative (NEG) Urine Urobilinogen Dipstick 0.2 mg/dL (0.2 mg/dL) Urine Leukocyte Esterase Trace (NEG) Urine RBC 0 /HPF (0-2) Urine WBC 1-4 /HPF (0-4) Urine Squamous Epithelial Cells Occ /LPF Urine Bacteria Few /HPF (0-FEW) Urine Mucus Mod /LPF White Blood Count 6.6 x10^3/uL (4.0-11.0) Red Blood Count 4.93 x10^6/uL (3.50-5.40) Hemoglobin 14.5 g/dL (12.0-15.5) Hematocrit 43.5 % (36.0-47.0) Mean Corpuscular Volume 88 fL (79-100) Mean Corpuscular Hemoglobin 29 pg (25-35) Mean Corpuscular Hemoglobin Concent 33 g/dL (31-37) Red Cell Distribution Width 13.4 % (11.5-14.5) Platelet Count 276 x10^3/uL (140-400) Neutrophils (%) (Auto) 62 % (31-73) Lymphocytes (%) (Auto) 26 % (24-48) Monocytes (%) (Auto) 8 % (0-9) Eosinophils (%) (Auto) 2 % (0-3) Basophils (%) (Auto) 1 % (0-3) Neutrophils # (Auto) 4.1 x10^3/uL (1.8-7.7) Lymphocytes # (Auto) 1.7 x10^3/uL (1.0-4.8) Monocytes # (Auto) 0.5 x10^3/uL (0.0-1.1) Eosinophils # (Auto) 0.2 x10^3/uL (0.0-0.7) Basophils # (Auto) 0.1 x10^3/uL (0.0-0.2) Sodium Level 139 mmol/L (136-145) 140 mmol/L (136-145) Potassium Level 3.2 mmol/L (3.5-5.1) 3.8 mmol/L (3.5-5.1) Chloride Level 100 mmol/L (98-107) 105 mmol/L (98-107) Carbon Dioxide Level 30 mmol/L (21-32) 23 mmol/L (21-32) Anion Gap 9 (6-14) 12 (6-14) Blood Urea Nitrogen 6 mg/dL (7-20) 5 mg/dL (7-20) Creatinine 1.1 mg/dL (0.6-1.0) 0.7 mg/dL (0.6-1.0) Estimated GFR (Cockcroft-Gault) 49.4 83.2 BUN/Creatinine Ratio 5 (6-20) Glucose Level 273 mg/dL (70-99) 190 mg/dL (70-99) Calcium Level 9.0 mg/dL (8.5-10.1) 8.5 mg/dL (8.5-10.1) Total Bilirubin 0.4 mg/dL (0.2-1.0) Aspartate Amino Transf (AST/SGOT) 25 U/L (15-37) Alanine Aminotransferase (ALT/SGPT) 55 U/L (14-59) Alkaline Phosphatase 96 U/L (46-116) Troponin I Quantitative < 0.017 ng/mL (0.000-0.055) < 0.017 ng/mL (0.000-0.055) Total Protein 8.3 g/dL (6.4-8.2) Albumin 4.2 g/dL (3.4-5.0) Albumin/Globulin Ratio 1.0 (1.0-1.7) Magnesium Level 2.3 mg/dL (1.8-2.4) 25-Hydroxy Vitamin D Total 12.2 ng/mL (30-100) Thyroid Stimulating Hormone (TSH) 0.481 uIU/mL (0.358-3.74) Glucose (Fingerstick) 124 mg/dL (70-99) Test 06/06/19 12:22 06/06/19 17:02 06/06/19 20:07 06/07/19 07:30 Glucose (Fingerstick) 147 mg/dL (70-99) 152 mg/dL (70-99) 157 mg/dL (70-99) Sodium Level 143 mmol/L (136-145) Potassium Level 4.0 mmol/L (3.5-5.1) Chloride Level 108 mmol/L (98-107) Carbon Dioxide Level 25 mmol/L (21-32) Anion Gap 10 (6-14) Blood Urea Nitrogen 6 mg/dL (7-20) Creatinine 0.7 mg/dL (0.6-1.0) Estimated GFR (Cockcroft-Gault) 83.2 Glucose Level 135 mg/dL (70-99) Calcium Level 9.0 mg/dL (8.5-10.1) Test 06/07/19 07:43 06/07/19 11:40 Glucose (Fingerstick) 141 mg/dL (70-99) 180 mg/dL (70-99) Laboratory Tests Test 06/06/19 17:02 06/06/19 20:07 06/07/19 07:30 06/07/19 07:43 Glucose (Fingerstick) 152 mg/dL (70-99) 157 mg/dL (70-99) 141 mg/dL (70-99) Sodium Level 143 mmol/L (136-145) Potassium Level 4.0 mmol/L (3.5-5.1) Chloride Level 108 mmol/L (98-107) Carbon Dioxide Level 25 mmol/L (21-32) Anion Gap 10 (6-14) Blood Urea Nitrogen 6 mg/dL (7-20) Creatinine 0.7 mg/dL (0.6-1.0) Estimated GFR (Cockcroft-Gault) 83.2 Glucose Level 135 mg/dL (70-99) Calcium Level 9.0 mg/dL (8.5-10.1) Test 06/07/19 11:40 Glucose (Fingerstick) 180 mg/dL (70-99) Brief Hospital Course Ms. Dumont is a 69 old admitted for palpitations and acute shoulder pain, CV consult benign problem, f/u primary care but noted shoulder dislocated at humerus fracture Dr. Conrad, saw pt, Status post reduction right shoulder dislocation with nondisplaced greater tuberosity fracture. should heal without surg, in sling, f/u 2-3 weeks ortho Discharge Information Condition at Discharge: Improved Follow Up: Weeks Disposition/Orders: D/C to Home Scheduled Cholecalciferol (Vitamin D3) (Vitamin D) 2,000 Unit Capsule, 1 CAP PO DAILY for vitamin replacement, #30 Ref 1 Prescribed by: SHARRI CHILDERS on 06/07/19 1320 Metformin HCl (Metformin HCl) 500 Mg/5 Ml Solution, 500 MG PO BID for diabetes , (Reported) Entered as Reported by: PRACHI CLIFFORD RN on 06/06/19 1043 Last Action: HELD on 06/06/19 1119 by JERONIMO HERNANDEZ Scheduled PRN Docusate Sodium (Colace) 100 Mg Capsule, 100 MG PO BID PRN for CONSTIPATION, #40 Prescribed by: SHARRI CHILDERS on 06/07/19 1245 Hydrocodone Bit/Acetaminophen (Hydrocodone-Apap 5-325 ) 1 Tab Tablet, 1 TAB PO PRN Q4HRS PRN for PAIN, #28 Prescribed by: SHARRI CHILDERS on 06/07/19 1245 Miscellaneous Medications [atorvastatin] , (Reported) Entered as Reported by: BERTHA JOHNSTON on 06/06/19127 Last Action: New Order on 06/06/19127 by BERTHA JOHNSTON [lorsatin] , (Reported) Entered as Reported by: BERTHA JOHNSTON on 06/06/19127 Last Action: New Order on 06/06/19127 by BERTHA JOHNSTON [metformin] , (Reported) Entered as Reported by: BERTHA JOHNSTON on 06/06/19126 Last Action: New Order on 06/06/19126 by BERTHA JOHNSTON Patient Instructions Patient Instructions > 30min face to face discussed with patient SHARRI CHILDERS MD Jun 07, 2019 13:23
--- NOTE | 2019-06-07 13:45 | NUR ---
pt discharged home self care. pt understands discharge instructions, prescriptions and follow ups. Patient alert and stable upon d/c. IV discontinued. all belongings with patient. Patient accompanied by family upon d/c
== END 2019-06-07 13:47 | disposition home or self-care (01) | DRG 562 ==
LOC: ER 19:07 → 2 NORTH 21:53 → 5 SOUTH 06-06 16:52
PROVIDERS: ADMIT Internal Medicine; ATTEND Internal Medicine
PROC: 0RSJXZZ Reposition Right Shoulder Joint, External Approach (ICD-10-PCS; principal; 2019-06-05)
DX: S42.254A Nondisplaced fracture of greater tuberosity of right humerus, initial encounter for closed fracture (principal); N17.0 Acute kidney failure with tubular necrosis; E78.5 Hyperlipidemia, unspecified; W18.39XA Other fall on same level, initial encounter; I10 Essential (primary) hypertension; I16.0 Hypertensive urgency; M19.90 Unspecified osteoarthritis, unspecified site; F32.9 Major depressive disorder, single episode, unspecified; S43.004A Unspecified dislocation of right shoulder joint, initial encounter; Z82.49 Family history of ischemic heart disease and other diseases of the circulatory system; Z86.73 Personal history of transient ischemic attack (TIA), and cerebral infarction without residual deficits; Y93.89 Activity, other specified; Y92.89 Other specified places as the place of occurrence of the external cause; Y99.8 Other external cause status
CPT/HCPCS: 36415; 70450; 73030; 73060; 73080; 80048; 80053; 81001; 82306; 82962; 83735; 84443; 84484; 85025; 87086; 93005; 96361; 96374; J0360; J3010; J7030; 97110; 97535; 99285-25; G0378

== ENCOUNTER 2021-02-14 21:06 | Emergency (ER) | payer MEDICARE, OTHER ==
[~2021-02-14] VITALS: Ht 157.5 cm; Wt 69.5 kg
[~2021-02-14 21:06] MED LIST: CHOL2000 PO; DOCU-109 PO; HYDR-2761 PO; METF500S5 PO; [UNRECOGNIZED DRUG - OTHER]; atorvastatin; metformin
[2021-02-14 21:45] LABS: BASO # 0.1 x10^3/uL (0.0-0.2); BASO % 1 % (0-3); EOS # 0.3 x10^3/uL (0.0-0.7); EOS % 4 % (0-3); HEMATOCRIT 39.5 % (36.0-47.0); HEMOGLOBIN 13.2 g/dL (12.0-15.5); LYMPH # 2.1 x10^3/uL (1.0-4.8); LYMPH % 33 % (24-48); MEAN CORPUSCULAR HEMOGLOBIN 30 pg (25-35); MEAN CORPUSCULAR HGB CONC 33 g/dL (31-37); MEAN CORPUSCULAR VOLUME 90 fL (79-100); MONO # 0.7 x10^3/uL (0.0-1.1); MONO % 11 % (0-9); NEUT # 3.3 x10^3/uL (1.8-7.7); NEUT % 51 % (31-73); PLATELET COUNT 363 x10^3/uL (140-400); RED BLOOD COUNT 4.41 x10^6/uL (3.50-5.40); RED CELL DISTRIBUTION WIDTH 13.8 % (11.5-14.5); WHITE BLOOD COUNT 6.5 x10^3/uL (4.0-11.0)
[2021-02-14 21:55] LABS: CALCIUM 8.4 mg/dL (8.5-10.1); CREATININE 0.7 mg/dL (0.6-1.0); GFR 82.7; POTASSIUM 3.9 mmol/L (3.5-5.1)
--- NOTE | 2021-02-14 21:55 | PHYS DOC ---
Past Medical History Past Medical History: Hypertension Smoking Status: Never Smoker Alcohol Use: None Drug Use: None General Adult EDM: Chief Complaint: HYPERTENSION HPI: HPI: Patient is a 71 year old female with a past medical hypertension, hyperlipidemia, diabetes and history of aneurysm with clipping presents with the chief complaint of headache. Female presents with a chief complaint of headache and dizziness. She states symptoms occurred 45 minutes prior to arrival. Headache was located on the left synagogue region-- rated 7/10 at onset. Patient states she took her blood pressure at that time and noted it to be greater than 200 systolic. Patient denies any visual changes or focal weakness. Review of Systems: Review of Systems: Review of systems: Constitutional symptoms- No fever, no chills. Eyes- No Discharge, No Visual Loss Respiratory symptoms- No shortness of breath, No wheezing, No Dyspnea on Exertion Cardiovascular Systems; No chest pain, No Palpitations, No syncope Gastrointestinal symptoms: NO abdominal pain, no nausea, no vomiting or diarrhea. Genitourinary symptoms: No dysuria. Musculoskeletal symptoms: No back pain No extremity pain. NEUROLOGICAL Symptoms: Positive headache, no generalized weakness; No focal Weakness Positive dizziness Heart Score: C/O Chest Pain: N/A Risk Factors: Risk Factors: DM, Current or recent (<one month) smoker, HTN, HLP, family history of CAD, obesity. Risk Scores: Score 0 - 3: 2.5% MACE over next 6 weeks - Discharge Home Score 4 - 6: 20.3% MACE over next 6 weeks - Admit for Clinical Observation Score 7 - 10: 72.7% MACE over next 6 weeks - Early Invasive Strategies Allergies: Allergies: Allergies Coded Allergies Type Severity Reaction Last Updated Verified No Known Drug Allergies 06/05/19 No Physical Exam: PE: General: alert, no acute distress. Skin: warm, dry and intact. Head:: Normocephalic, atraumatic. Neck: Trachea midline. Eyes: EOMI, Normal conjunctiva, No drainage CARDIOVASCULAR: Regular rate and rhythm RESPIRATORY: No respiratory distress Back: Full range of motion. MUSCULOSKELETAL: Full range of motion of bilateral upper and lower extremities. GASTROINTESTINAL: Abdomen soft without rebound or guarding. NEUROLOGICAL: Alert and noted to person, place and time. No neurological deficits observed Psychiatric: Cooperative. Normal judgment EKG: EKG: [] EKG performed at 2120 heart rate [address] elevations no acute TX T wave inversions 1 aVL Radiology/Procedures: Radiology/Procedures: [] Impression: FINDINGS: CTA NECK: Visualized portions of thoracic aorta are unremarkable. Standard three-vessel aortic arch anatomy. Right common carotid artery is patent without evidence of stenosis, occlusion or aneurysm. Cervical segment of the right internal carotid artery is patent without evidence of stenosis, occlusion or aneurysm. Left common carotid artery is patent without evidence of stenosis, occlusion or aneurysm. Mild plaque at the origin of the left internal carotid artery without evidence of stenosis, occlusion or aneurysm. Right vertebral artery is patent to the basilar confluence without evidence of stenosis, occlusion or aneurysm. Left vertebral artery is patent to the basilar confluence without evidence of stenosis, occlusion or aneurysm. Few scattered nodular opacities noted at the right lung apex measuring up to 4 mm. CTA HEAD: Intracranial segments of the right internal carotid artery are patent without evidence of stenosis, occlusion or aneurysm. Right MCA is patent. Right MARIA T is patent. Redemonstration of extensive embolization coils at the left cavernous sinus. Utilized portions of the left internal carotid artery are patent. There is a anteriorly projecting saccular aneurysm which is arises off the left carotid terminus measuring 4 mm in diameter. Left MCA is patent. Left MARIA T is patent. Basilar artery is patent without evidence of stenosis, occlusion or aneurysm. manager biologics are patent bilaterally. IMPRESSION: 1. Redemonstration of extensive embolization coils at the left cavernous sinus which limits the evaluation at this level. 2. 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 3. Mild plaque at the origin of the left internal carotid artery without significant stenosis. 4. Few scattered nodular opacities at the right lung apex measuring up to 4 mm. In a low-risk patient no further follow-up imaging is recommended. In a high- risk patient optional one-year follow-up chest CT can BE performed. Course & Med Decision Making: Course & Med Decision Making Pertinent Labs and Imaging studies reviewed. (See chart for details) [] Patient was evaluated for chief complaint. Work-up consisted of laboratory analysis radiologic imaging and EKG. Results reviewed and discussed with patient and family. CT imaging shows [address] findings with the radiologist. No CT evidence of bleeding. Discussed patient and radiologic findings with Dr Pennington. Reevaluation patient states her headache has completely resolved. Patient's blood pressure in the emergency department 150s systolic. Patient states she feels better and feels comfortable going home. Patient states she has an appointment with neurology on February 22. Patient discharged home with instructions to follow up. Patient advised to return to the ER if symptoms return persist or any new concerning symptoms arise. Phil Disclaimer: Phil Disclaimer: This electronic medical record was generated, in whole or in part, using a voice recognition dictation system. Departure Departure Impression: Primary Impression: Headache Additional Impressions: Hypertension Aneurysm Disposition: HOME / SELF CARE / HOMELESS Condition: STABLE Referrals: UNKNOWN PCP NAME (PCP) EM PENNINGTON MD Patient Instructions: Cerebral Aneurysm, Headache, FAQs, Hypertension NATY ANTHONY I DO Feb 14, 2021 21:55
[2021-02-14 22:00] LABS: ALBUMIN/GLOBULIN RATIO 1.3 (1.0-1.7); TOTAL BILIRUBIN 0.2 mg/dL (0.2-1.0); TOTAL PROTEIN 7.1 g/dL (6.4-8.2)
[2021-02-14] MEDS ORDERED: CONTRAST GIVEN. MC PRN (22:15)
[2021-02-14] MEDS ORDERED: IOHEXOL 350 MG/ML 100 ML VIAL. IV ONE (22:30)
--- NOTE | 2021-02-14 22:33 | RAD ---
Exam: CT head INDICATION: Headache TECHNIQUE: Sequential axial images through the head were obtained without the administration of IV co ntrast. Exposure: One or more of the following in the visualized dose reduction techniques were utilized for this examination: 1. Automated exposure control 2. Adjustment of the MA and/or KV according to patient size 3. Use of iterative of reconstructive technique Comparisons: 06/05/2019 FINDINGS: Extensive embolization coils noted at the left cavernous sinus which markedly limit the evaluation. No large focal parenchymal lesion or hemorrhage is identified. There is no midline shift or sulcal ef facement. Mild patchy hypodensity in the periventricular white matter, similar prior exam. No large acute vascu lar territory infarction is identified. Foster-white distinction is preserved. The ventricular system is within normal limits without compression hydrocephalus. The basal cisterns are well maintained. The visualized portions of the paranasal sinuses and mastoid air cells are well-pneumatized. No acute fractures. IMPRESSION: Limitations as described above. No intracranial abnormality identified. Electronically signed by: Rick Humphrey MD (02/14/2021 10:30 PM) [facility]
--- NOTE | 2021-02-14 22:47 | RAD ---
Exam: CTA head and neck INDICATION: Headache TECHNIQUE: Sequential axial images through the head and neck obtained following the administration of 75 mL of Omni 350 IV contrast. Sagittal and coronal reformatted images were reconstructed from the a xial data and reviewed. 3-D reformatted images were reconstructed from the axial data and reviewed. Exposure: One or more of the following in the visualized dose reduction techniques were utilized for this examination: 1. Automated exposure control 2. Adjustment of the MA and/or KV according to patient size 3. Use of iterative of reconstructive technique Comparisons: CT head without contrast same day FINDINGS: CTA NECK: Visualized portions of thoracic aorta are unremarkable. Standard three-vessel aortic arch anatomy. Right common carotid artery is patent without evidence of stenosis, occlusion or aneurysm. Cervical s egment of the right internal carotid artery is patent without evidence of stenosis, occlusion or aneu rysm. Left common carotid artery is patent without evidence of stenosis, occlusion or aneurysm. Mild plaque at the origin of the left internal carotid artery without evidence of stenosis, occlusion or aneurys m. Right vertebral artery is patent to the basilar confluence without evidence of stenosis, occlusion or aneurysm. Left vertebral artery is patent to the basilar confluence without evidence of stenosis, occlusion or aneurysm. Few scattered nodular opacities noted at the right lung apex measuring up to 4 mm. CTA HEAD: Intracranial segments of the right internal carotid artery are patent without evidence of stenosis, o cclusion or aneurysm. Right MCA is patent. Right MARIA T is patent. Redemonstration of extensive embolization coils at the left cavernous sinus. Utilized portions of the left internal carotid artery are patent. There is a anteriorly projecting saccular aneurysm which is arises off the left carotid terminus measuring 4 mm in diameter. Left MCA is patent. Left MARIA T is pat ent. Basilar artery is patent without evidence of stenosis, occlusion or aneurysm. integrity assessor are patent bilater ally. IMPRESSION: 1. Redemonstration of extensive embolization coils at the left cavernous sinus which limits the eval uation at this level. 2. 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 3. Mild plaque at the origin of the left internal carotid artery without significant stenosis. 4. Few scattered nodular opacities at the right lung apex measuring up to 4 mm. In a low-risk patien t no further follow-up imaging is recommended. In a high-risk patient optional one-year follow-up coy st CT can BE performed. Electronically signed by: Rick Humphrey MD (02/14/2021 10:45 PM) [facility]
[2021-02-14] MEDS ORDERED: MORPHINE SULFATE 2 MG/ML VIAL. IV ONE (23:30)
[2021-02-14 23:50] VITALS: BP 169/73
--- NOTE | 2021-02-15 20:01 | EKG ---
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
--- NOTE | 2021-02-17 12:31 | EKG ---
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
== END 2021-02-14 23:56 | disposition home or self-care (01) ==
LOC: ER 21:06
DX: I10 Essential (primary) hypertension (principal); R51.9 Headache, unspecified; R42 Dizziness and giddiness; I72.9 Aneurysm of unspecified site; E11.9 Type 2 diabetes mellitus without complications
CPT/HCPCS: 36415; 70450; 70496; 70498; 80053; 84484; 85025; 93005; 99285; Q9967